=== PATIENT | male | born 1945 | race Caucasian/White ===

== ENCOUNTER 2022-01-30 01:00 | Day surgery (SDC) | payer MEDICARE, OTHER, SELFPAY ==
[2022-01-19 14:00] VITALS: BMI 27.9
[2022-01-30 09:06] VITALS: BP 128/87; PULSE 59; RESP 18; TEMP 36.3; O2SAT 100; BMI 25.7
--- NOTE | 2022-01-30 09:22 | P.HP_ITS ---
History of Present Illness History of Present Illness Consent: Risks, benefits, and alternatives have been discussed and questions answered. Patient agrees to proceed with procedure. Chief complaint: neoplasm screening Narrative: Dimitri Howe is a 76 year old male Presents for screening colonoscopy. Patient reports his current weight appetite and bowel movements are normal. Patient denies abdominal pain. He has had no bleeding. Family history is non contributory. Patient's last exam 10 years ago was unremarkable. Review of Systems Review of Systems: Review of systems noncontributory. [facility] Family History Family History (Updated 04/05/18 @ 15:40 by DOCTOR UNKNOWN) Father Diabetes mellitus Carcinoma of colon Family history of congestive heart failure Social History Social History Smoking status: Never smoker Second hand tobacco smoke exposure: No Alcohol intake: current Drinks per week: 4 Substance use type: does not use Living arrangements: with family Spiritual care concerns: No Meds Home Medications and Allergies Home Medications Medication Instructions Recorded Confirmed Type ascorbic acid (vitamin C) 500 mg 500 mg PO DAILY 03/21/19 01/30/22 History tablet (Vitamin C With Kendal Hips) finasteride 5 mg tablet 5 mg PO DAILY 03/21/19 01/30/22 History fish oil-dha-epa 1,200 mg-144 1 cap PO DAILY 03/21/19 01/30/22 History mg-216 mg capsule rjnutyaf-xep-wghiw acid 300 1 tablet PO DAILY 03/21/19 01/30/22 History mcg-lycopene 600 mcg-lutein 300 mcg tablet (Centrum Silver Men) sildenafil 100 mg tablet 100 mg PO DAILY PRN Erectile 03/21/19 01/30/22 History Dysfunction Allergies Allergy/AdvReac Type Severity Reaction Status Date / Time Contrast Media Allergy Unknown PREMEDS Uncoded 01/30/22 09:14 BEFORE CONTRAST TESTS D/T LOBSTER ALLERGY Lobster Allergy Unknown UNKNOWN Uncoded 01/30/22 09:14 Vital Signs Vital Signs - 24 hr 01/30/22 09:06 Temperature 97.3 F L Pulse Rate 59 L Respiratory Rate 18 Blood Pressure 128/87 Pulse Oximetry 100 Oxygen Delivery Room Air Exam Narrative: Physical exam reveals patient be alert. Vital signs stable. HEENT exam is unremarkable. Patient is anicteric. Lungs are clear to auscultation and percussion. Heart is without murmur or extra sounds. Abdomen bowel sounds present soft nontender with no organomegaly. Digital external rectal exam is normal. Assessment and Plan Assessment and plan (1) Encounter for screening colonoscopy: Code(s): Z12.11 - Encounter for screening for malignant neoplasm of colon Status: Acute Assessment and Plan: Patient presents today for screening colonoscopy. Appears to be at average risk for colon polyps.
[2022-01-30] MEDS: LACTATED RINGERS 1,000 ML 150 ML IV CONT (09:26)
--- NOTE | 2022-01-30 10:15 | P.PNAN_ITS ---
Anes - Initial Pre Proc Eval Procedure: Operation Date: 01/30/22 10:30 Proposed Procedures p Screening Colonoscopy - Reno Langston MD Date/Time: 01/30/22 10:15 Surgeon: Reno Langston MD Pre Op Diagnosis: neoplasm screening Patient Data Age: 76 Gender: M Height: 1.85 m Weight: 88.4 kg Last Vital Signs Temp 97.3 F L 01/30/22 09:06 Pulse 59 L 01/30/22 09:06 Resp 18 01/30/22 09:06 BP 128/87 01/30/22 09:06 Pulse Ox 100 01/30/22 09:06 O2 Del Method Room Air 01/30/22 09:06 Allergies Allergy/AdvReac Type Severity Reaction Status Date / Time Contrast Media Allergy Unknown PREMEDS Uncoded 01/30/22 09:14 BEFORE CONTRAST TESTS D/T LOBSTER ALLERGY Lobster Allergy Unknown UNKNOWN Uncoded 01/30/22 09:14 Home Medications Medication Instructions Recorded Confirmed Type ascorbic acid (vitamin C) 500 mg 500 mg PO DAILY 03/21/19 01/30/22 History tablet (Vitamin C With Kendal Hips) finasteride 5 mg tablet 5 mg PO DAILY 03/21/19 01/30/22 History fish oil-dha-epa 1,200 mg-144 1 cap PO DAILY 03/21/19 01/30/22 History mg-216 mg capsule xtudqnig-bdb-czndr acid 300 1 tablet PO DAILY 03/21/19 01/30/22 History mcg-lycopene 600 mcg-lutein 300 mcg tablet (Centrum Silver Men) sildenafil 100 mg tablet 100 mg PO DAILY PRN Erectile 03/21/19 01/30/22 History Dysfunction Patient hx anesthesia problems: none Family hx anesthesia problems: none Results Review: All pre-operative results and documents have been reviewed as part of the pre- operative evaluation. [facility] Family History Family History (Updated 04/05/18 @ 15:40 by DOCTOR UNKNOWN) Father Diabetes mellitus Carcinoma of colon Family history of congestive heart failure Social History Social History Smoking status: Never smoker Second hand tobacco smoke exposure: No Alcohol intake: current Drinks per week: 4 Substance use type: does not use Living arrangements: with family Spiritual care concerns: No Anes - Eval Final PreProcedure Day of Procedure 01/30/22 10:15 Results Review: All pre-operative results and documents have been reviewed as part of the pre- operative evaluation. Informed Consent: The patient's anesthetic plan and its attendant risks and benefits were discussed with the patient/family/POA. Questions were solicited and answers provided to the satisfaction of the patient/family/POA.
[2022-01-30 10:42] VITALS: BP 112/64; PULSE 74; RESP 18; O2SAT 98
[2022-01-30 10:52] VITALS: BP 110/67; PULSE 63; RESP 18; O2SAT 100
[2022-01-30 10:58] VITALS: BP 130/73; PULSE 57; RESP 18; O2SAT 100
== END 2022-01-30 11:19 | disposition home or self-care (01) ==
PROVIDERS: PCP Family Medicine Sports Medicine; Visit Provider Internal Medicine Gastroenterology
PROC: 0DJD8ZZ Inspection of Lower Intestinal Tract, Via Natural or Artificial Opening Endoscopic (ICD-10-PCS; CPT 45378; principal; 2022-01-30 10:30)
DX: Z12.11 Encounter for screening for malignant neoplasm of colon (principal); K64.8 Other hemorrhoids
CPT/HCPCS: G0121; J2704; J7120

== ENCOUNTER 2023-06-09 08:25 | Outpatient (CLI) | payer MEDICARE, OTHER, SELFPAY ==
--- NOTE | ~2023-06-09 | CT_ITS ---
EXAMINATION: CT abdomen pelvis wo/w con DATE: 06/09/2023 09:40 INDICATION: Malignant neoplasm of the bladder wall TECHNIQUE: Computed tomography (CT) of the abdomen and pelvis was performed without and with 130 cc O mnipaque 350 intravenous contrast. The dose-length product was 1466.15 mGy-cm. Automated exposure con trol and iterative reconstruction technique were employed. COMPARISON: CT dated 01/17/2016 FINDINGS: There are calcified granulomas of the lungs and spleen. Heart size normal. No significant p leural or pericardial effusion. No ureteral stones. No hydronephrosis. Fatty infiltration of the liver. The pancreas, adrenal glands and right kidney are unremarkable. Ther e is a 1 cm left renal cyst. Ureters are normal in course and caliber. Bladder wall is mildly thicken ed diffusely. There is focal nodular thickening of the inferior margin of the bladder. Nonobstructive bowel pattern. There is atherosclerosis of the aorta without aneurysm. No lymphadenopathy. No eviden ce for hernia. Gallbladder is present. Moderate lumbar spondylosis. IMPRESSION: 1. Diffuse mild bladder wall thickening with nodular thickening of the bladder base which may corresp ond to area of known malignancy. Clinically correlate. Reviewed, dictated and finalized at location A. IMPRESSION: 1. Diffuse mild bladder wall thickening with nodular thickening of the bladder base which may correspond to area of known malignancy. Clinically correlate.
[2023-06-09 09:08] LABS: Basophils Percent Auto 0.2 % (0.2-1.2); Hematocrit 47.1 % (42.0-52.0); Hemoglobin 15.7 g/dL (14.0-18.0); Immature Granulocyte Absolute 0.03 K/mm3 (0.00-0.031); Immature Granulocyte Percent A 0.5 % (0-0.5); Lymphocytes Absolute Auto 0.44 K/mm3 (0.9-3.2); Mean Corpuscular HGB Conc 33.3 g/dl (32-36); Mean Corpuscular Hemoglobin 31.1 pg (26-34); Mean Corpuscular Volume 93.3 fl (80-100); Mean Platelet Volume 10.2 fl (7.4-10.4); Monocytes Absolute Auto 0.1 K/mm3 (0.1-0.6); Monocytes Percent Auto 1.1 % (2.6-8.5); Neutrophils Absolute Auto 5.8 K/mm3 (1.3-6.7); Neutrophils Percent Auto 91.2 % (45.5-73.1); Platelet Count Result 265 k/mm3 (150-375); Red Blood Count 5.05 M/mm3 (4.6-6.20); Red Cell Distribution Width 13.2 % (11.5-14.5); White Blood Count 6.3 K/mm3 (4.5-10.0)
[2023-06-09 09:21] LABS: Anion Gap 6 mmol/L (8-16); Blood Urea Nitrogen 16 mg/dL (9-20); Calcium 9.1 mg/dL (8.4-10.2); Carbon Dioxide 28 mmol/L (22-30); Chloride 104 mmol/L (98-107); Estimated Glomerular Filt Rate > 60; Glucose 148 mg/dL (65-110); Partial Thromboplastin Time 31.1 Seconds (22.3-36.8); Potassium 4.5 mmol/L (3.4-5.0); Prothrombin Time 13.3 Seconds (11.1-14.7); Sodium 138 mmol/L (137-145)
[2023-06-09 09:22] LABS: Estimated Glomerular Filt Rate > 60
== END 2023-06-09 08:26 | disposition home or self-care (01) ==
PROVIDERS: PCP Family Medicine Sports Medicine; Visit Provider Urology
DX: C67.9 Malignant neoplasm of bladder, unspecified (principal)
CPT/HCPCS: 36415; 74178; 80048; 85025; 85610; 85730; Q9967

== ENCOUNTER 2023-06-12 01:53 | Day surgery (SDC) | payer MEDICARE, OTHER, SELFPAY ==
--- NOTE | 2023-06-08 09:31 | PC.NURSE ---
Report to the Outpatient Waiting Room, entrance under the green pavilion located off [facility], at time _0730 on date __06/12/23 . Planned Procedure Time: _929 . Time changes happen often and if your time is changed the preop area will call you the afternoon before. - You and your visitor will be asked to self-screen and do not enter if you have any COVID symptoms. - A mask is optional within the hospital at this time. Patients may have clear liquids (water, carbonated beverages, clear teas, apple juice) until 3 hours prior to surgery( 6:30 AM) with a maximum of 20 ounces. - No food from midnight until time of surgery - Infants may have breast milk until 4 hours before surgery, formula 6 hours prior to surgery. - Children will be allowed to drink immediately following surgery. If applicable, please bring a bottle or sippy cup to assist with drinking. Juice, water, soda, and popsicles are readily available. For infants on formula, please bring formula the day of surgery. Pacifiers are allowed. Take the following medications with a SIP of water the morning of surgery: NONE DO NOT STOP ANY OF YOUR OTHER PRESCRIPTION MEDICATIONS PRIOR TO SURGERY ?EXCEPT THE FOLLOWING Medications to discontinue per physician ALL VITAMINS AND SUPPLEMENTS 3 DAYS PRE OP.LAST DOSE 06/08/23 Please no make-up, nail italian, hairspray, perfume, deodorant, or body powder the day of surgery. No jewelry (including any body piercings) or valuables the day of surgery, leave them at home. Please take a shower or bath the night before, or the morning of, surgery with an antibacterial soap. Wear comfortable, loose fitting clothing. Children are encouraged to wear pajamas. - Jewelry must be removed prior to entering the operating room. Rings and piercings that are not removed may be cut off. - The hospital will not accept responsibility for valuables. - Please leave all valuables, including medications, at home the day of surgery. If you are going home after surgery, a licensed drop hammer pile driver operator must drive you home. - NO public transportation without another adult if you receive anesthesia. - We recommend that an adult stay with you for 24 hours following discharge. - We also recommend that you do not drive, make important decision, drink alcoholic beverages, or take any drugs that were not prescribed by your health care provider for at least 24 hours after your discharge time Follow any additional instructions given to you from your surgeon. If you or anyone in your household have experienced Covid symptoms in the past week, please notify your surgeon or the nurse liaison at the phone number below for possible testing. Telephone instructions given to __PATIENT and asked if any additional questions and then verbalized understanding. Patient advised to call surgeon office or pre surgery nurse liaison [phone] if any additional questions.
[2023-06-08 09:45] VITALS: BMI 27.0
[2023-06-12] VITALS (9 sets, daily range): BP systolic 136–185; BP diastolic 75–98; PULSE 46–74; RESP 10–20; TEMP 36.3; O2SAT 94–100; BMI 26.4
--- NOTE | ~2023-06-12 | XR_ITS ---
EXAMINATION: XR retrograde pyelogram LT DATE: 06/12/2023 11:57 INDICATION: Left retrograde pyelogram TECHNIQUE: 4 fluoroscopic images of the abdomen and pelvis were obtained during procedure performed zulma Howard. Radiologist was not present for the imaging or procedure. The amount of fluoroscopy t pablo used during this procedure was 0.3 minutes. COMPARISON: None. FINDINGS: Images demonstrate retrograde cannulation and contrast injection into the left ureter with contrast e xtending to the normal left renal collecting system. No urothelial irregularities or evident filling defects. IMPRESSION: 1. Normal left retrograde pyelogram. See procedure note for further detail. Reviewed, dictated and finalized at location A.
[2023-06-12] MEDS: LACTATED RINGERS 1,000 ML 30 ML IV CONT ×2 (08:25→11:58)
--- NOTE | 2023-06-12 09:20 | SUR.PREOP ---
0920- Notified patient and spouse procedure start time will be delayed. Patient and spouse verbalized understanding. Patient offered restroom and declined at this time. Patient denying any additional needs.
--- NOTE | 2023-06-12 10:01 | WPDHPUPDATE1 ---
History and Physical Update Update Date/Time: 06/12/23 10:01 History and Physical has been reviewed, including an updated exam of the patient. There are NO changes in the patient's condition. Risks, benefits, and alternatives have been discussed and questions answered. Patient agrees to proceed with procedure. Proceed with cysto, bladder biopsy, left retrograde pyelogram left ureteroscopy ,transurethral resection of bladder tumor
--- NOTE | 2023-06-12 11:09 | P.PNAN_ITS ---
Anes - Initial Pre Proc Eval Procedure: Operation Date: 06/12/23 09:30 Proposed Procedures p Cystoscopy Bladder Biopsy Left Retrograde Pyelogram, Left Ureteroscopy, - Rashard Howard MD s Possible Transurethral Resection Bladder Tumor - Rashard Howard MD Date/Time: 06/12/23 11:09 Surgeon: Rashard Howard MD Pre Op Diagnosis: bladder cancer Patient Data Age: 77 Gender: M Height: 1.85 m Weight: 91 kg Last Vital Signs Temp 36.3 C L 06/12/23 07:40 Pulse 60 06/12/23 07:40 Resp 14 06/12/23 07:40 BP 143/75 H 06/12/23 07:40 Pulse Ox 99 06/12/23 07:40 O2 Del Method Room Air 06/12/23 07:40 Allergies Allergy/AdvReac Type Severity Reaction Status Date / Time Contrast Media Allergy Unknown PREMEDS Uncoded 06/12/23 07:55 BEFORE CONTRAST TESTS D/T LOBSTER ALLERGY Lobster Allergy Unknown Vomiting Uncoded 06/12/23 07:55 Home Medications Medication Instructions Recorded Confirmed Type ascorbic acid (vitamin C) 500 mg 500 mg PO DAILY 03/21/19 06/12/23 History tablet (Vitamin C With Kendal Hips) finasteride 5 mg tablet 5 mg PO DAILY 03/21/19 06/08/23 History tjkffwqb-jk-xpiij 300 mcg-K 60 1 tablet PO DAILY 03/21/19 06/12/23 History mcg-lycop 600 mcg-lutein 300 mcg tablet (Centrum Silver Men) flaxseed oil (Linseed Oil) 10 ml miscellaneous DAILY 06/08/23 06/12/23 History Patient hx anesthesia problems: none Family hx anesthesia problems: none Results Review: All pre-operative results and documents have been reviewed as part of the pre- operative evaluation. [facility], [facility] Family History Family History Father Diabetes mellitus Carcinoma of colon Family history of congestive heart failure Social History Social History Smoking status: Never smoker Second hand tobacco smoke exposure: No Alcohol intake: current Drinks per week: 2 Substance use type: does not use Living arrangements: with family Spiritual care concerns: No Anes - Eval Final PreProcedure Day of Procedure 06/12/23 11:09 Patient weight: overweight Heart: regular rate and rhythm Lungs: clear to auscultation Airway: Mallampati scale class II Neurological: alert and oriented Last oral intake: >/= 8 hours ASA classification: III Emergent: no Anesthetic plan: proceed Anesthesia type and monitoring: general LMA and standard monitoring Results Review: All pre-operative results and documents have been reviewed as part of the pre- operative evaluation. Informed Consent: The patient's anesthetic plan and its attendant risks and benefits were discussed with the patient/family/POA. Questions were solicited and answers pr ovided to the satisfaction of the patient/family/POA.
[2023-06-12] MEDS: ceFAZolin 2 GM/D5W 50 ML 2 GM/50 ML BAG IVPB (11:15)
--- NOTE | 2023-06-12 11:54 | W.PM.PROC2 ---
Procedure Note - Detailed Date of Procedure 06/12/23 Pre-op Diagnosis bladder cancer Post-op Diagnosis Same Procedure Performed Cystoscopy, left retrograde pyelogram, left distal ureteroscopy, bladder biopsy with fulguration Surgeon Rashard Howard MD Anesthesia General Description of Procedure Patient is taken to the operative suite correctly identified. Once anesthesia was obtained was placed in dorsal lithotomy position and prepped and draped usual sterile fashion. Twenty-two Samoan scope was inserted in the bladder. He has some erythema along the left lateral wall and floor of the bladder. Using a cold cup biopsy I biopsied these areas and fulgurated the base. A left retrograde pyelogram was performed. There was no filling defects but it was somewhat dilated the distal ureter down to the intramural ureter. I placed a Sensor wire and a rigid ureteral scope in. There is no tumors noted. It did eventually drain the contrast. Bladder was drained. 2% viscous lidocaine was inserted into the urethra patient is taken recovery stable condition. He is to call for path results in 1 week. This completes dictation. Please send a copy of op note to my office. Estimated Blood Loss 0 Drains No Packing No Pathology Yes Complications No immediate complications Condition Stable Disposition PACU
[2023-06-12] MEDS: ACETAMINOPHEN 500 MG TABLET 1000 MG PO (13:20)
== END 2023-06-12 14:02 | disposition home or self-care (01) ==
PROVIDERS: PCP Family Medicine Sports Medicine; Visit Provider Urology
PROC: 0TBB8ZZ Excision of Bladder, Via Natural or Artificial Opening Endoscopic (ICD-10-PCS; CPT 52204; 2023-06-12 09:30)
DX: N30.20 Other chronic cystitis without hematuria (principal); N32.81 Overactive bladder; R35.1 Nocturia
CPT/HCPCS: 52204; 74420; 88305; A9270; J0690; J1100; J2250; J2405; J2704; J3010; J7120

== ENCOUNTER 2024-01-08 07:41 | Outpatient (CLI) | payer MEDICARE, OTHER, SELFPAY ==
--- NOTE | 2024-01-08 07:48 | ECG_ITS ---
Test Date: 2024-01-08 08:12:37 Measurements Intervals [place] Rate: 58 P: 46 AR: 193 QRS: 17 QRSD: 90 T: 38 QT: 382 QTc: 377 Interpretive Statements SINUS BRADYCARDIA POSSIBLE RIGHT VENTRICULAR CONDUCTION DELAY [RSR (QR) IN V1/V2] No previous ECG available for comparison Electronically Signed On 01-08-2024 09:43:27 CDT by Pritesh Angel M.D.
[2024-01-08 08:32] LABS: Basophils Percent Auto 0.5 % (0.2-1.2); Eosinophils Absolute Auto 0.2 K/mm3 (0-0.3); Eosinophils Percent Auto 4.1 % (0-4.4); Hematocrit 44.9 % (42.0-52.0); Hemoglobin 15.1 g/dL (14.0-18.0); Immature Granulocyte Absolute 0.03 K/mm3 (0.00-0.031); Immature Granulocyte Percent A 0.5 % (0-0.5); Lymphocytes Absolute Auto 1.08 K/mm3 (0.9-3.2); Lymphocytes Percent Auto 19.3 % (18.3-44.2); Mean Corpuscular HGB Conc 33.6 g/dl (32-36); Mean Corpuscular Hemoglobin 31.7 pg (26-34); Mean Corpuscular Volume 94.1 fl (80-100); Mean Platelet Volume 9.7 fl (7.4-10.4); Monocytes Absolute Auto 0.6 K/mm3 (0.1-0.6); Monocytes Percent Auto 11.4 % (2.6-8.5); Neutrophils Absolute Auto 3.6 K/mm3 (1.3-6.7); Neutrophils Percent Auto 64.2 % (45.5-73.1); Platelet Count Result 245 k/mm3 (150-375); Red Blood Count 4.77 M/mm3 (4.6-6.20); Red Cell Distribution Width 13.2 % (11.5-14.5); White Blood Count 5.6 K/mm3 (4.5-10.0)
[2024-01-08 08:41] LABS: Prothrombin Time 13.6 Seconds (11.1-14.7)
[2024-01-08 08:42] LABS: Partial Thromboplastin Time 29.3 Seconds (22.3-36.8)
[2024-01-08 08:44] LABS: Anion Gap 3 mmol/L (4-12); Blood Urea Nitrogen 16 mg/dL (9-20); Calcium 9.2 mg/dL (8.4-10.2); Carbon Dioxide 34 mmol/L (22-30); Chloride 101 mmol/L (98-107); Estimated Glomerular Filt Rate > 60; Glucose 96 mg/dL (65-110); Potassium 4.4 mmol/L (3.4-5.0); Sodium 138 mmol/L (137-145)
== END 2024-01-08 07:42 | disposition home or self-care (01) ==
LOC: ANHSURGERY 07:48
PROVIDERS: PCP Family Medicine Sports Medicine; Visit Provider Urology
DX: Z01.818 Encounter for other preprocedural examination (principal); N32.9 Bladder disorder, unspecified; I10 Essential (primary) hypertension; R00.1 Bradycardia, unspecified
CPT/HCPCS: 36415; 80048; 85025; 85610; 85730; 87086; 93005

== ENCOUNTER 2024-01-15 02:29 | Day surgery (SDC) | payer MEDICARE, OTHER, SELFPAY ==
[2024-01-04 13:22] VITALS: BMI 26.2
--- NOTE | 2024-01-04 13:32 | PC.NURSE ---
Report to the Outpatient Waiting Room, entrance under the green pavilion located off [facility], at time _0715am _ on date 01/15/24 . Planned Procedure Time: __0915 am .? Time changes happen often and if your time is changed the preop area will call you the afternoon before. - You and your visitor will be asked to self-screen and do not enter if you have any COVID symptoms. Please call surgeon if you need to reschedule. - A mask is optional within the hospital at this time. Patients may have clear liquids (water, carbonated beverages, clear teas, apple juice) until 3 hours prior to surgery with a maximum of 20 ounces. - No food from midnight until time of surgery and no smoking (0615) Take only the following medications with a SIP of water on the morning of surgery: None DO NOT STOP ANY OF YOUR OTHER PRESCRIPTION MEDICATIONS PRIOR TO SURGERY EXCEPT THE FOLLOWING Medications to discontinue per physician Vitamins and supplements hold for 3 days per Anesthesia Date to take last dose___01/11/24 Please no make-up, nail sami, hairspray, perfume, deodorant, or body powder the day of surgery.? No jewelry (including any body piercings) or valuables the day of surgery, leave them at home.? Please take a shower or bath the night before, or the morning of, surgery with an antibacterial soap.? Wear comfortable, loose fitting clothing.? - Jewelry must be removed prior to entering the operating room.? Rings and piercings that are not removed may be cut off. - The hospital will not accept responsibility for valuables.? - Please leave all valuables, including medications, at home the day of surgery. If you are going home after surgery, a licensed show horse driver must drive you home.? - NO public transportation without another adult if you receive anesthesia. - We recommend that an adult stay with you for 24 hours following discharge. - We also recommend that you do not drive, make important decision, drink alcoholic beverages, or take any drugs that were not prescribed by your health care provider for at least 24 hours after your discharge time. Follow any additional instructions given to you from your surgeon. Telephone instructions given to __patient and asked if any additional questions and then verbalized understanding. Patient advised to call surgeon office or pre surgery nurse liaison [phone] if any additional questions.
[2024-01-15] VITALS (9 sets, daily range): BP systolic 111–181; BP diastolic 64–101; PULSE 55–68; RESP 10–20; TEMP 35.9–36.4; O2SAT 99–100
[2024-01-15] MEDS: LACTATED RINGERS 1,000 ML 30 ML IV CONT (09:00)
--- NOTE | 2024-01-15 10:35 | WPDHPUPDATE1 ---
History and Physical Update Update Date/Time: 01/15/24 10:35 History and Physical has been reviewed, including an updated exam of the patient. There are NO changes in the patient's condition. Risks, benefits, and alternatives have been discussed and questions answered. Patient agrees to proceed with procedure. Proceed with cysto, bladder biopsy with fulguration possible TURBT
--- NOTE | 2024-01-15 10:51 | P.PNAN_ITS ---
Anes - Initial Pre Proc Eval Procedure: Operation Date: 01/15/24 10:15 Proposed Procedures p Trans Urethral Resection Bladder Tumor - Rashard Howard MD s Cystoscopy with Bladder Biopsy - Rashard Howard MD Date/Time: 01/15/24 10:51 Surgeon: Rashard Howard MD Pre Op Diagnosis: Ca Situ Bladder, Overactive Bladder, Chr Cystitis Patient Data Age: 78 Gender: M Height: 1.85 m Weight: 89.2 kg Last Vital Signs Temp 35.9 C L 01/15/24 09:00 Pulse 59 L 01/15/24 09:00 Resp 14 01/15/24 09:00 BP 141/81 H 01/15/24 09:00 Pulse Ox 99 01/15/24 09:00 O2 Del Method Room Air 01/15/24 09:00 Allergies Allergy/AdvReac Type Severity Reaction Status Date / Time Contrast Media Allergy Unknown PREMEDS Uncoded 01/15/24 09:27 BEFORE CONTRAST TESTS D/T LOBSTER ALLERGY Lobster Allergy Unknown Vomiting Uncoded 01/15/24 09:27 Home Medications Medication Instructions Recorded Confirmed Type ascorbic acid (vitamin C) 500 mg 500 mg PO DAILY 03/21/19 01/15/24 History tablet (Vitamin C With Kendal Hips) finasteride 5 mg tablet 5 mg PO DAILY 03/21/19 01/15/24 History uaripfub-ap-byqaj 300 mcg-K 60 1 tablet PO DAILY 03/21/19 01/15/24 History mcg-lycop 600 mcg-lutein 300 mcg tablet (Centrum Silver Men) flaxseed oil (Linseed Oil) 10 ml miscellaneous DAILY 06/08/23 01/04/24 History vibegron 75 mg tablet (Gemtesa) 75 mg PO DAILY 01/04/24 01/04/24 History Patient hx anesthesia problems: none Family hx anesthesia problems: none Results Review: All pre-operative results and documents have been reviewed as part of the pre- operative evaluation. [facility] Past Medical History Medical History (Updated 01/15/24 @ 10:52 by Memo Nicole MD) Bladder cancer HTN (hypertension) Family History Family History Father Diabetes mellitus Carcinoma of colon Family history of congestive heart failure Social History Social History Smoking status: Never smoker Second hand tobacco smoke exposure: No Alcohol intake: current Drinks per week: 1 Substance use: never Substance use type: does not use Living arrangements: with family Additional living arrangements comments: Spiritual care concerns: No Anes - Eval Final PreProcedure Day of Procedure 01/15/24 10:51 Patient weight: overweight Heart: regular rate and rhythm Lungs: clear to auscultation Airway: Mallampati scale class II Neurological: alert and oriented Last oral intake: >/= 8 hours ASA classification: III Emergent: no Anesthetic plan: proceed Anesthesia type and monitoring: general LMA and standard monitoring Results Review: All pre-operative results and documents have been reviewed as part of the pre- operative evaluation. Informed Consent: The patient's anesthetic plan and its attendant risks and benefits were discussed with the patient/family/POA. Questions were solicited and answers provided to the satisfaction of the patient/family/POA.
[2024-01-15] MEDS: ceFAZolin 2 GM/D5W 50 ML 2 GM/50 ML BAG IVPB (11:18)
[2024-01-15] MEDS: LIDOCAINE HCL 2% GEL UROJET 10 ML PKG MUCOUS MEM (11:34)
--- NOTE | 2024-01-15 11:52 | W.PM.PROC2 ---
Procedure Note - Detailed Date of Procedure 01/15/24 Pre-op Diagnosis Ca Situ Bladder, Overactive Bladder, Chr Cystitis Post-op Diagnosis Same Procedure Performed Cystoscopy with bladder biopsy and fulguration Surgeon Rashard Howard MD Anesthesia General Description of Procedure Patient was taken the operative suite correctly identified. Once anesthesia was obtained was placed in dorsal lithotomy position and prepped and draped usual sterile fashion. Twenty-two New Zealander scope inserted the bladder. There was no discrete papillary tumors. He does have quite a bit of diffuse erythema along the posterior wall and floor the bladder. Using cold cup biopsy and took several pieces. These were then fulgurated using a rollerball. I did not see any significant abnormality at the bladder neck on today's exam. 2% viscous lidocaine was inserted into the urethra and he is taken recovery stable condition. He will call for results in a week. Please send a copy of this op note to my office. Estimated Blood Loss 0 Drains No Packing No Pathology Yes Complications No immediate complications Condition Stable Disposition PACU
[2024-01-15] MEDS: ACETAMINOPHEN 500 MG TABLET 1000 MG PO (13:19)
== END 2024-01-15 14:00 | disposition home or self-care (01) ==
PROVIDERS: PCP Family Medicine Sports Medicine; Visit Provider Urology
PROC: 0TBB8ZZ Excision of Bladder, Via Natural or Artificial Opening Endoscopic (ICD-10-PCS; CPT 52204; principal; 2024-01-15 10:15)
PROC: 0TBB8ZX Excision of Bladder, Via Natural or Artificial Opening Endoscopic, Diagnostic (ICD-10-PCS; CPT 52204; 2024-01-15 10:15)
DX: Z08 Encounter for follow-up examination after completed treatment for malignant neoplasm (principal); D09.0 Carcinoma in situ of bladder; N30.20 Other chronic cystitis without hematuria; N32.89 Other specified disorders of bladder; I10 Essential (primary) hypertension; N40.1 Benign prostatic hyperplasia with lower urinary tract symptoms; N32.81 Overactive bladder; R35.0 Frequency of micturition; N52.9 Male erectile dysfunction, unspecified; Z85.51 Personal history of malignant neoplasm of bladder; Z80.0 Family history of malignant neoplasm of digestive organs; Z82.49 Family history of ischemic heart disease and other diseases of the circulatory system
CPT/HCPCS: 52204; 88305; 88342; A9270; J0690; J1100; J1596; J2003; J2405; J2704; J3010; J7120

== ENCOUNTER 2024-05-30 07:22 | Outpatient (CLI) | payer MEDICARE, OTHER, SELFPAY ==
--- NOTE | ~2024-05-30 | CT_ITS ---
EXAMINATION: CT abdomen pelvis wo/w con DATE: 05/30/2024 08:07 INDICATION: Carcinoma in situ of bladder. TECHNIQUE: Computed tomography (CT) of the abdomen and pelvis was performed without and with intraven ous contrast using a total of 130 mL Omnipaque-350 intravenous contrast with a double-bolus technique for simultaneous opacification of the renal parenchyma and renal collecting system. Automated exposu re control and iterative reconstruction technique were employed. The dose-length product was 1501.62 mGy-cm. COMPARISON: CT abdomen and pelvis 06/09/2023 FINDINGS: The visualized portions of the lung bases demonstrate mild atelectasis. Calcified pulmonary nodules a nd calcified hilar and mediastinal lymph nodes are consistent with old granulomatous disease. No pleu ral effusion. Calcifications in the liver and spleen are consistent with old granulomatous disease. T he liver, pancreas, adrenal glands, and right kidney are normal. There are cysts in left kidney measu ring up to 10 mm. There is no urolithiasis. The ureters are well opacified and are normal. There is d iffuse bladder wall thickening. The prostate is mildly enlarged. There are no dilated loops of bowel. The appendix is normal. There are no pathologically enlarged lymph nodes. There is no free intraperi toneal fluid. There are bilateral inguinal hernias containing fat. There is mild thoracic and lumbar spondylosis. There is mild chronic height loss of multiple thoracic vertebral bodies. IMPRESSION: 1. Chronic diffuse bladder wall thickening, likely secondary to chronic outlet obstruction from the m ildly enlarged prostate. Malignancy is not excluded. Reviewed, dictated and finalized at location L. IMPRESSION: 1. Chronic diffuse bladder wall thickening, likely secondary to chronic outlet obstruction from the mildly enlarged prostate. Malignancy is not excluded.
--- OUTSIDE RECORDS SUMMARY | 2024-05-30 07:36 | XMS_ITS | Encounter Summary ---
Author Organization [facility] Address [facility] [place] [address] Care Team Providers Care Test Preparer Name Role Phone Shahid Alanis MD Primary Care Provider [phone]- [phone] Encounter Details Date Type Department Care Team (Late st Contact Info) Description 11/18/2021 Software 2000t Message Enc [facility] Medical Group Family & Internal Medicine [address] [address] Shahid Alanis MD [address] [place] [address] 10 year colonoscopy Social History Tobacco Use Types Packs/Day Years Used Date Smoking Tobacco: Former Cigarettes 0.3 0.3 Smokeless Tobacco: Never Comments:former smoker, kana h or 2 in college. Alcohol Use Standard Drinks/Week Comments Yes 5 (1 standard drink = 0.6 oz pur e alcohol) 2-6 beers/week PHQ-2 Answer Date Recorded PHQ-2 Score - If the patient scores above 3, please move on to questions 3-9 0 11/16/2021 Sex and Gender Information Value Date Recorded Sex Assigned at Not on file Legal Sex Male 7:52 PM CDT Gender Identity Male 06/29/2021 10:01 AM CDT Sexual Orientation Straight 06/29/2021 10 :01 AM CDT COVID-19 Exposure Response Date Recorded In the last 10 days, have yo u been in contact with someone who was confirmed or suspected to have Coronavirus/COVID-19? No / Unsure 11/17/2021 3:42 PM CDT documented as of this encounter Plan of Treatment Upcoming Encounters Date Type Department Care Team (Late st Contact Info) Description 11/27/2024 3:40 PM CDT Office Visit [facility] Medical Group Family & Internal Medicine [facility] [address] [place] [phone] Shahid Alanis MD [address] [facility] [address] [place] [address] documented as of this encounter Visit Diagnoses Not on filedocumented in this encounter Additional Health Concerns Infection Onset Date Last Indicated Resolved Time COVID-19 Rule Out 01/10/2023 01/10/2023 01/10/2023 9:50 AM CDT COVID-19 Rule Out 03/30/2023 03/30/2023 03/30/2023 8:46 AM VICE PRESIDENT OF ENGINEERING COVID-19 Rule Out 03/30/2023 03/30/2023 03/30/2023 11:24 AM VICE PRESIDENT OF ENGINEERING Assessment Noted Time PHQ-9 Depression Total Score: 0 11/17/19 21 4:14 PM CDT documented as of this encounter Care Teams Test Preparer Relationship Specialty [place] [address] [place] [address] PCP - General FAMILY PRACTICE 11/13/19 documented as of this encounter
--- OUTSIDE RECORDS SUMMARY | 2024-05-30 07:36 | XMS_ITS | Clinical Summary ---
Author Organization [facility] Address [address] [place] [address] Phone Care Team Providers Care Hat Block Maker Name Role Phone Shahid Alanis MD Primary Care Provider Allergies Active Allergy Reactions Criticality Noted Date Comments Shellfish Containing Products Unknown 2021 Medications finasteride (PROSCAR) 5 mg tablet Take 5 mg by mouth daily at bedtime. 08/24/2019 Active therapeutic multivitamin (THERA TAB) Tablet Take 1 Tablet by mouth daily. Active calcium as carbonate (TUMS) 500 mg (200 mg elemental) Tablet, Chewable Take by mouth. Active flaxseed Oil 1,000 mg Capsule Take 1,000 mg by mouth daily. Active turmeric 400 mg Capsule Take 400 mg by mouth daily. Active ascorbic acid, vitamin C, (VITAMIN C) 500 mg tablet Take 500 mg by mouth daily. Active Social History Tobacco Use Types Packs/Day Years Used Date Smoking Tobacco: Never Assessed Sex and Gender Information Value Date Recorded Sex Assigned at Not on file Legal Sex Male 10:50 AM CDT Gender Identity Not on file Sexual Orientation Not on file Last Filed Vital Signs Vital Sign Reading Time Taken Comments Blood Pressure 158/75 11/10/2021 1:20 PM EDT Pulse 55 11/10/2021 1:20 PM EDT Temperature - - Respiratory Rate 20 11/10/2021 11:55 AM EDT Oxygen Saturation 100% 11/10/2021 1:20 PM EDT Inhaled Oxygen Concentration - - Weight 95.3 kg (210 lb) 11/10/2021 11:55 AM EDT Height 180.3 cm (5' 11 ) 11/10/2021 11:55 AM EDT Body Mass Index 29.29 11/10/2021 11:55 AM EDT Plan of Treatment Health Maintenance Due Date Last Done Comments PNEUMOCOCCAL VACCINE 50+ YEA RS (2 of 2 - PCV) 12/17/2017 12/17/2016, 12/30/2013 RSV VACCINE (60+ or ) (1 - 1-dose 75+ series) 2021 INFLUENZA VACCINE (#1) 2023 DTAP/TDAP/TD VACCINES (2 - T d or Tdap) 11/10/2026 11/10/2016, 03/22/2005, 05/28/1995 ZOSTER VACCINE Completed 10/02/2019, 04/20, 05/14/2014 Insurance MEDICARE [facility] [facility] Care Teams Hat Block Maker Relationship Specialty [place] [address] [address] [place] [address] PCP - General Family Practice 11/10/21
--- OUTSIDE RECORDS SUMMARY | 2024-05-30 07:36 | XMS_ITS | Clinical Summary ---
Author Organization [facility] Address [facility] [place] [address] Care Team Providers Care Practice Consultant Name Role Phone hSahid Alanis MD Primary Care Provider +1- [phone] Allergies Active Allergy Reactions Criticality Noted Date Comments Shellfish-Derived Products Nausea and Vo miting,Other (see comment) Medium 11/13/2019 Medications finasteride 5 MG tablet Take 1 tablet (5 mg total) by mouth daily. 08/24/2019 Active vitamin C (ASCORBIC ACID) 500 MG tablet Take 1 tablet (500 mg total) by mouth daily. Active multi vitamin/minerals tablet Take 1 tablet by mouth daily. Active Calcium Carbonate Antacid 1000 MG Chew Tab 03/19/1999 Active Flaxseed, Linseed, (FLAXSEED OIL) 1200 MG Cap 03/19/2015 Active vibegron (GEMTESA) 75 MG tablet 09/07/2023 Active Active Problems No known active problems Encounters Date Type Department Care Team Description 03/10/2024 11:52 AM TRAIN CALLER - 03/10/2024 11:59 PM TRAIN CALLER Hospital Encounter [facility] [address] [place] [address] Celeste Del Castillo, PA Discharge Disposition: Home or Self Care (Routine Discharge) 03/10/2024 10:40 AM TRAIN CALLER Office Visit [facility] Medical Group Family & Internal Medicine [facility] [address] [place] [address] Celeste Del Castillo, PA Urinary Problem (4 days ago started having urgency to urinate ) 03/10/2024 Travel 03/04/2024 Scan [facility] INFO SRVCS Scanned, Doc Med Group from Last 3 Months Immunizations Name Administration Dates Next Due Influenza (Generic) 12/27/2018 Influenza Adult (Generic) 12/30/2015 Pneumococcal (Pneumovax 23) 12/17/2016, 4 Shingrix 10/02/2019,05/14/2019 Td (Generic) 03/22/2005,05/28/1995 Td, Adsorbed, Preservative F ree, Adult Use, Lf Unspecified 03/22/2005,05/28/1995 Tdap (Generic) 11/10/2016 Zoster (Zostavax) 14262 Unt/0.65Ml 05/14/2014 Family History Medical History Relation Comments CHF Father Cancer Father colon Diabetes Father Heart Disease Father Arthritis Mother Relation Status Comments Father Mother Social History Tobacco Use Types Packs/Day Years Used Date Smoking Tobacco: Former Cigarettes 0.3 0.2 1 - 03/18/1966 Smokeless Tobacco: Never Tobacco Cessation:Counseling Given: No Comments:former smoker, month or 2 in college. Alcohol Use Standard Drinks/Week Comments Yes 5 (1 standard drink = 0.6 oz pur e alcohol) 2-6 beers/week PHQ-2 Answer Date Recorded Patient Health Questionnaire-2 Score 0 01/10/2023 Sex and Gender Information Value Date Recorded Sex Assigned at Not on file Legal Sex Male 7:52 PM CDT Gender Identity Male 06/29/2021 10:01 AM CDT Sexual Orientation Straight 06/29/2021 10 :01 AM CDT Last Filed Vital Signs Vital Sign Reading Time Taken Comments Blood Pressure 129/71 03/10/2024 9:02 AM TRAIN CALLER Pulse 60 03/10/2024 8:55 AM TRAIN CALLER Temperature 36.5 C (97.7 F) 03/10/2024 8:55 AM TRAIN CALLER Respiratory Rate 18 03/10/2024 8:55 AM TRAIN CALLER Oxygen Saturation 98% 03/10/2024 8:55 AM TRAIN CALLER Inhaled Oxygen Concentration - - Weight 94.7 kg (208 lb 12.8 oz) 03/10/2024 8:55 AM TRAIN CALLER Height 185.4 cm (6' 1 ) 03/10/2024 8:55 AM TRAIN CALLER Body Mass Index 27.55 03/10/2024 8:55 AM TRAIN CALLER Plan of Treatment Upcoming Encounters Date Type Department Care Team (Late st Contact Info) Description 11/27/2024 3:40 PM CDT Office Visit [facility] Medical Group Family & Internal Medicine [facility] [address] [place] [address] Shahid Alanis MD [address] [facility] [address] [place] [address] Health Maintenance Due Date Last Done Comments Hepatitis C 1963 Annual Medicare Wellness Visit 11/12/2011 Pneumococcal Vaccine: 65+ Years (2 of 2 - PCV) 12/17/2017 12/17/2016, 12/30/2013 RSV Immunization or 60+ Years (1 - 1-dose 75+ series) 2021 COVID-19 Vaccine ( season) 2023 01/08/2023, 12/11/2021, 10/04/2021, Additional history exists Influenza Adult (#1) 2023 12/27/2018, 12/30/19 16 PHQ-2 (Physician De Berry) 03/19/2024 01/10/2023 DTaP, Tdap and Td Vaccines (2 - Td or Tdap) 11/10/2026 11/10/2016, 03/22/2005, 03/22/2005, Additional history exists Zoster Vaccines Completed 10/02/2019, 04/20, 05/14/2014 Meningococcal B Vaccine Aged Out No l onger eligible based on patient's age to complete this topic Meningococcal Vaccine Aged Out No jeremias gopal eligible based on patient's age to complete this topic RSV Immunizations Under 20 Months Aged Out No longer eligible based on patient's age to complete this topic Procedures Procedure Name Priority Date/Time Associated Diagnosis Comments URINE BACTERIA CULTURE Routine 03/10/2024 9:24 AM TRAIN CALLER Symptoms involving urinary system Acute cystitis with hematuria URINALYSIS AUTO DIP Routine 03/10/2024 Symptoms involving urinary system from Last 3 Months Results * URINE BACTERIA CULTURE (03/10/2024 9:24 AM TRAIN CALLER) SPEC DESCRIPTION URINE CLEAN CATCH 03/10/2024 11:53 AM TRAIN CALLER [facility] SPECIAL REQUESTS NO SPECIAL REQUEST 03/10/2024 11:53 AM TRAIN CALLER [facility] CULTURE RESULT NO GROWTH 2 DAYS 03/12/2024 8:01 AM TRAIN CALLER [facility] URINE SPECIMEN OBTAINED BY CLEAN CATCH PROCEDURE / Unknown 03/10/2024 9:24 AM TRAIN CALLER 03/10/2024 11:57 AM TRAIN CALLER Celeste DOBBINS MICROBIOLOGY - GENERAL ORDER ZOILA Final Result [facility] [address] [place] [address], [place] [phone] [facility] [address] [place] [address], [place] [phone] * (ABNORMAL) URINALYSIS AUTO DIP (03/10/2024) COLOR (U) YELLOW YELLOW [id number] CLEAR CLEAR MG-[address], [place] GLUCOSE (U) NEGATIVE NEGATIVE MG/DL [id number] [address], [place] BILIRUBIN (U) NEGATIVE NEGATIVE MG-[address], [place] KETONES MG/DL (U) NEGATIVE NEGATIVE MG/DL [id number], [place] SPECIFIC GRAVITY (U) 1.020 1.001 - 1.035 [id number] BLOOD (U) NEGATIVE NEGATIVE MG-[address] U PH 6.5 5.0 - 9.0 MG-[address], [place] PROTEIN (U) TRACE(A) NEGATIVE mg/dL [id number] [address], [place] UROBILINOGEN 0.2 0.2 - 1.0 EU/dL = mg/dL [id number] [address], [place] NITRITES NEGATIVE NEGATIVE MG/DL MG-[id number] [address], [place] LEUKOCYTES (U) TRACE(A) NEGATIVE MG-[address] [place] URINE SPECIMEN OBTAINED BY CLEAN CATCH PROCEDURE / Unknown 03/10/2024 us Celeste DOBBINS URINE ORDERABLES Final Resul t [id number] [address] [place] [address] [place] [address], [place] [phone] from Last 3 Months Insurance MEDICARE [facility] Care Teams Practice Consultant Relationship Specialty [place] [address] [place] [address] PCP - General FAMILY PRACTICE 11/13/19
[2024-05-30 07:47] LABS: Estimated Glomerular Filt Rate > 60
== END 2024-05-30 07:23 | disposition home or self-care (01) ==
PROVIDERS: PCP Family Medicine Sports Medicine; Visit Provider Urology
DX: D09.0 Carcinoma in situ of bladder (principal)
CPT/HCPCS: 74178; Q9967

== ENCOUNTER 2024-05-30 08:31 | Outpatient (CLI) | payer MEDICARE, OTHER, SELFPAY ==
--- OUTSIDE RECORDS SUMMARY | 2024-05-30 08:51 | XMS_ITS | Encounter Summary ---
Author Organization [facility] Address [facility] [place] [address] Care Team Providers Care Lead Programmer Name Role Phone Shahid Alnais MD Primary Care Provider +1- [phone] Encounter Details Date Type Department Care Team (Late st Contact Info) Description 11/18/2021 TransLatticet Message Enc [facility] Medical Group Family & Internal Medicine [address] [address] Shahid Alanis MD [address] [place] [address] 10 year colonoscopy Social History Tobacco Use [...] Description 11/27/2024 3:40 PM CDT Office Visit [facility] Medical Group Family & Internal Medicine [facility] [address] [place] [phone] Shahid Alanis MD [address] [facility] [address] [place] [address] documented as of this encounter Visit Diagnoses Not on filedocumented in this encounter Additional Health Concerns Infection Onset Date Last Indicated Resolved Time COVID-19 Rule Out 01/10/2023 01/10/2023 01/10/2023 9:50 AM CDT COVID-19 Rule Out 03/30/2023 03/30/2023 03/30/2023 8:46 AM RESEARCH ANALYST COVID-19 Rule Out 03/30/2023 03/30/2023 03/30/2023 11:24 AM RESEARCH ANALYST Assessment Noted Time PHQ-9 Depression Total Score: 0 11/17/19 21 4:14 PM CDT documented as of this encounter Care Teams Lead Programmer Relationship Specialty [place] [address] [place] [address] PCP - General FAMILY PRACTICE 11/13/19 documented as of this encounter
--- OUTSIDE RECORDS SUMMARY | 2024-05-30 08:51 | XMS_ITS | Clinical Summary ---
Author Organization [facility] Address [facility] access hospital[address] [place] [address] Care Team Providers Care Sec Reporting Consultant Name Role Phone Shahid Alanis MD Primary Care Provider +1- [phone] Allergies Active Allergy Reactions Criticality Noted Date [...] Department Care Team Description 03/10/2024 11:52 AM DOG WARDEN - 03/10/2024 11:59 PM DOG WARDEN Hospital Encounter [facility] [address] [place] [address] Celeste Del Castillo, PA Discharge Disposition: Home or Self Care (Routine Discharge) 03/10/2024 10:40 AM DOG WARDEN Office Visit [facility] Medical Group Family & Internal Medicine [facility] [address] [place] [address] Celeste Del Castillo, PA Urinary [...] Unspecified 03/22/2005,05/28/1995 Tdap (Generic) 11/10/2016 Zoster (Zostavax) 42879 Unt/0.65Ml 05/14/2014 Family History Medical History Relation [...] Comments Blood Pressure 129/71 03/10/2024 9:02 AM DOG WARDEN Pulse 60 03/10/2024 8:55 AM DOG WARDEN Temperature 36.5 C (97.7 F) 03/10/2024 8:55 AM DOG WARDEN Respiratory Rate 18 03/10/2024 8:55 AM DOG WARDEN Oxygen Saturation 98% 03/10/2024 8:55 AM DOG WARDEN Inhaled Oxygen Concentration - - Weight 94.7 kg (208 lb 12.8 oz) 03/10/2024 8:55 AM DOG WARDEN Height 185.4 cm (6' 1 ) 03/10/2024 8:55 AM DOG WARDEN Body Mass Index 27.55 03/10/2024 8:55 AM DOG WARDEN Plan of Treatment Upcoming Encounters Date Type Department Care Team (Late st Contact Info) Description 11/27/2024 3:40 PM CDT Office Visit [facility] Medical Group Family & Internal Medicine [facility] [address] [place] [address] Shahid Alanis MD [address] [facility] [address] [place] [address] Health Maintenance Due Date Last Done Comments Hepatitis C 1963 Annual Medicare Wellness Visit 11/12/2011 Pneumococcal Vaccine: 65+ Years (2 of 2 - PCV) 12/17/2017 12/17/2016, 12/30/2013 RSV Immunization or 60+ Years (1 - 1-dose 75+ series) 2021 COVID-19 Vaccine ( season) 2023 01/08/2023, 12/11/2021, 10/04/2021, Additional history exists Influenza Adult (#1) 2023 12/27/2018, 12/30/19 16 PHQ-2 (Physician [place]) 03/19/2024 01/10/2023 DTaP, Tdap and Td Vaccines [...] URINE BACTERIA CULTURE Routine 03/10/2024 9:24 AM DOG WARDEN Symptoms involving urinary system Acute cystitis with hematuria URINALYSIS AUTO DIP Routine 03/10/2024 Symptoms involving urinary system from Last 3 Months Results * URINE BACTERIA CULTURE (03/10/2024 9:24 AM DOG WARDEN) SPEC DESCRIPTION URINE CLEAN CATCH 03/10/2024 11:53 AM DOG WARDEN [facility] SPECIAL REQUESTS NO SPECIAL REQUEST 03/10/2024 11:53 AM DOG WARDEN [facility] CULTURE RESULT NO GROWTH 2 DAYS 03/12/2024 8:01 AM DOG WARDEN [facility] URINE SPECIMEN OBTAINED BY CLEAN CATCH PROCEDURE / Unknown 03/10/2024 9:24 AM DOG WARDEN 03/10/2024 11:57 AM DOG WARDEN Celeste DOBBINS MICROBIOLOGY - GENERAL ORDER ZOILA Final Result [facility] [address] [place] [address], [place] [phone] [facility] [address] [place] [address], [place] [phone] * (ABNORMAL) URINALYSIS AUTO DIP (03/10/2024) COLOR (U) YELLOW YELLOW [id number], [facility] CLEAR CLEAR MG-[address], [place] GLUCOSE (U) NEGATIVE NEGATIVE MG/DL [id number] [address], [place] BILIRUBIN (U) NEGATIVE NEGATIVE MG-[address], [place] KETONES MG/DL (U) NEGATIVE NEGATIVE MG/DL MG-[address], [place] SPECIFIC GRAVITY (U) 1.020 1.001 - 1.035 MG-[address], [facility] (U) NEGATIVE NEGATIVE MG-[id number], [facility] PH 6.5 5.0 - 9.0 MG-[id number], [place] PROTEIN (U) TRACE(A) NEGATIVE mg/dL [id number], [place] UROBILINOGEN 0.2 0.2 - 1.0 EU/dL = mg/dL MG-[id number] [address], [place] NITRITES NEGATIVE NEGATIVE MG/DL [id number] [address], [place] LEUKOCYTES (U) TRACE(A) NEGATIVE MG-12 [address] [place] URINE SPECIMEN OBTAINED BY CLEAN CATCH PROCEDURE / Unknown 03/10/2024 us Celeste DOBBINS URINE ORDERABLES Final Resul t [id number] [address] [place] [address] [place] [address], [place] [phone] from Last 3 Months Insurance MEDICARE [facility] Care Teams Sec Reporting Consultant Relationship Specialty [place] [address] [place] [address] PCP - General FAMILY PRACTICE 11/13/19
--- OUTSIDE RECORDS SUMMARY | 2024-05-30 08:51 | XMS_ITS | Clinical Summary ---
Author Organization [facility] Address [address] [place] [address] Phone Care Team Providers Care Software Sales Consultant Name Role Phone Shahid Alanis MD [...] Completed 10/02/2019, 04/20, 05/14/2014 Insurance MEDICARE [employer] [facility] Care Teams Software Sales Consultant Relationship Specialty [place] [address] [place] [phone] PCP - General Family Practice 11/10/21
[2024-05-30 09:18] LABS: Basophils Percent Auto 0.1 % (0.2-1.2); Hematocrit 45.7 % (42.0-52.0); Hemoglobin 15.6 g/dL (14.0-18.0); Immature Granulocyte Absolute 0.03 K/mm3 (0.00-0.031); Immature Granulocyte Percent A 0.4 % (0-0.5); Lymphocytes Absolute Auto 0.49 K/mm3 (0.9-3.2); Lymphocytes Percent Auto 5.9 % (18.3-44.2); Mean Corpuscular HGB Conc 34.1 g/dl (32-36); Mean Corpuscular Hemoglobin 31.6 pg (26-34); Mean Corpuscular Volume 92.7 fl (80-100); Mean Platelet Volume 9.9 fl (7.4-10.4); Monocytes Absolute Auto 0.1 K/mm3 (0.1-0.6); Monocytes Percent Auto 1.5 % (2.6-8.5); Neutrophils Absolute Auto 7.6 K/mm3 (1.3-6.7); Neutrophils Percent Auto 92.1 % (45.5-73.1); Platelet Count Result 244 k/mm3 (150-375); Red Blood Count 4.93 M/mm3 (4.6-6.20); White Blood Count 8.3 K/mm3 (4.5-10.0)
[2024-05-30 09:25] LABS: Anion Gap 13 mmol/L (4-12); Blood Urea Nitrogen 17 mg/dL (9-20); Calcium 9.3 mg/dL (8.4-10.2); Carbon Dioxide 25 mmol/L (22-30); Chloride 102 mmol/L (98-107); Estimated Glomerular Filt Rate > 60; Glucose 138 mg/dL (65-110); Potassium 4.3 mmol/L (3.4-5.0); Sodium 140 mmol/L (137-145)
[2024-05-30 09:44] LABS: Prothrombin Time 14.1 Seconds (11.1-14.7)
[2024-05-30 09:45] LABS: Partial Thromboplastin Time 31.8 Seconds (22.3-36.8)
[2024-05-30 10:13] LABS: Platelet Estimate Adequate (Adequate); Schistocytes None Seen
== END 2024-05-30 08:32 | disposition home or self-care (01) ==
PROVIDERS: PCP Family Medicine Sports Medicine; Visit Provider Urology
DX: C67.9 Malignant neoplasm of bladder, unspecified (principal); Z01.818 Encounter for other preprocedural examination
CPT/HCPCS: 36415; 80048; 85025; 85610; 85730; 87086

== ENCOUNTER 2024-06-10 01:25 | Day surgery (SDC) | payer MEDICARE, OTHER, SELFPAY ==
[2024-05-28 14:58] VITALS: BMI 26.7
--- NOTE | 2024-05-28 15:06 | PC.NURSE ---
Addendum entered by Dora Gonzalez RN 05/28/24 15:11: PT was told by Rosalie in [place] to stop all supplements 7 days prior , he verbalized this and also his need to order picker/assembler premeds for his Contrast allergy preop that they were calling in Original Note: Report to the Outpatient Waiting Room, entrance under the green pavilion located off [facility], at time __0600am on date __06/10/24 . Planned Procedure Time: __0730am .? Time changes happen often and if your time is changed the preop area will call you the afternoon before. - You and your visitor will be asked to self-screen and do not enter if you have any COVID symptoms. Please call surgeon if you need to reschedule. - A mask is optional within the hospital at this time. Patients may have clear liquids (water, carbonated beverages, clear teas, apple juice) until 3 hours prior to surgery with a maximum of 20 ounces. - No food from midnight until time of surgery and no smoking, or chewing tobacco (or any form of nicotine). No chewing gum, candy or mints. (0430am) Take only the following medications with a SIP of water on the morning of surgery: Premeds per Dr Howard DO NOT STOP ANY OF YOUR OTHER PRESCRIPTION MEDICATIONS PRIOR TO SURGERY EXCEPT THE FOLLOWING Hold all vitamins and supplements for 7 days per anesthesiologist.Date of last dose is 06/01/24 Please no make-up, nail setswana, hairspray, perfume, deodorant, or body powder the day of surgery.? No jewelry (including any body piercings) or valuables the day of surgery, leave them at home.? Please take a shower or bath the night before, or the morning of, surgery with an antibacterial soap.? Wear comfortable, loose fitting clothing.? - Jewelry must be removed prior to entering the operating room.? Rings and piercings that are not removed may be cut off. - The hospital will not accept responsibility for valuables.? - Please leave all valuables, including medications, at home the day of surgery. If you are going home after surgery, a licensed cdl driver must drive you home.? - NO public transportation without another adult if you receive anesthesia. - We recommend that an adult stay with you for 24 hours following discharge. - We also recommend that you do not drive, make important decision, drink alcoholic beverages, or take any drugs that were not prescribed by your health care provider for at least 24 hours after your discharge time. Follow any additional instructions given to you from your surgeon. Telephone instructions given to ___Patient and asked if any additional questions and then verbalized understanding. Patient advised to call surgeon office or pre surgery nurse liaison [phone] if any additional questions.
[2024-06-10] VITALS (10 sets, daily range): BP systolic 107–169; BP diastolic 61–94; PULSE 51–68; RESP 12–20; TEMP 36.2–36.5; O2SAT 99–100; BMI 26.8
--- NOTE | ~2024-06-10 | XR_ITS ---
EXAMINATION: XR retrograde pyelogram BI DATE: 06/10/2024 08:03 INDICATION: Bilateral retrograde pyelograms TECHNIQUE: 3 fluoroscopic images of the abdomen and pelvis were obtained during procedure performed b y Dr. Rg coleman. Radiologist was not present for the imaging or procedure. The amount of fluorosc opy time used during this procedure was 0.4 minutes. COMPARISON: CT dated 05/30/2024 FINDINGS: Injected contrast is seen in portions of the bilateral ureters and in the bilateral renal collecting systems. There is and elongated lucent filling defect in the proximal left ureter which is without co rrelate on the recent prior CT urogram suggest this most likely represents injected gas bubbles. IMPRESSION: 1. Likely gas bubble in the proximal left ureter without evident correlate on prior CT urogram. See p rocedure note for further detail. Reviewed, dictated and finalized at location B. IMPRESSION: 1. Likely gas bubble in the proximal left ureter without evident correlate on p rior CT urogram. See procedure note for further detail.
--- OUTSIDE RECORDS SUMMARY | 2024-06-10 01:38 | XMS_ITS | Clinical Summary ---
Author Organization [facility] Address [address] [place] [address] Phone Care Team Providers Care Freight Car Inspector Name Role Phone Shahid Alanis MD Primary [...] Completed 10/02/2019, 04/20, 05/14/2014 Insurance MEDICARE [employer] [facility] Care Teams Freight Car Inspector Relationship Specialty [place] [address] [address] [place] [phone] PCP - General Family Practice 11/10/21
--- OUTSIDE RECORDS SUMMARY | 2024-06-10 01:38 | XMS_ITS | Encounter Summary ---
Author Organization [facility] Address [facility] [place] [address] Care Team Providers Care Athlete Manager Name Role Phone Shahid Alanis MD Primary Care Provider [phone]- [phone] Encounter Details Date Type Department Care Team (Late st Contact Info) Description 11/18/2021 Fourteen IPt Message Enc [facility] Family [facility] Internal Medicine [address] [phone] Shahid Alanis MD [address] [place] [address] 10 year colonoscopy Social History Tobacco Use [...] Care Team (Late st Contact Info) Description 07/15/2024 6:30 AM CDT Laboratory Only [facility] [address] [place] [address] Manny Bullard MD [address] [place] [address] 11/27/2024 3:40 PM CDT Office Visit [facility] [address] [place] [address] Shahid Alanis MD [address] [address] documented as of this encounter Visit Diagnoses Not on filedocumented in this encounter Additional Health Concerns Infection Onset Date Last Indicated Resolved Time COVID-19 Rule Out 01/10/2023 01/10/2023 01/10/2023 9:50 AM CDT COVID-19 Rule Out 03/30/2023 03/30/2023 03/30/2023 8:46 AM COMMODITY MANAGEMENT SPECIALIST COVID-19 Rule Out 03/30/2023 03/30/2023 03/30/2023 11:24 AM COMMODITY MANAGEMENT SPECIALIST Assessment Noted Time PHQ-9 Depression Total Score: 0 11/17/19 21 4:14 PM CDT documented as of this encounter Care Teams Athlete Manager Relationship Specialty [place] [address] [place] [address] PCP - General FAMILY PRACTICE 11/13/19 documented as of this encounter
--- OUTSIDE RECORDS SUMMARY | 2024-06-10 01:38 | XMS_ITS | Clinical Summary ---
Author Organization [facility] Address [address] [place] [address] Care Team Providers Care Kitchen Steward/Stewardess Name Role Phone Shahid Alanis MD Primary Care Provider [phone]- [phone] Allergies Active Allergy Reactions Criticality Noted Date [...] Encounters Date Type Department Care Team Description 06/07/2024 Patient Self-Triage [facility] DEFAULT [facility] Provider from Last 3 Months Immunizations Name Administration Dates Next Due Influenza (Generic) 12/27/2018 Influenza Adult (Generic) 12/30/2015 Pneumococcal (Pneumovax 23) 12/17/2016, 4 Shingrix 10/02/2019,05/14/2019 Td (Generic) 03/22/2005,05/28/1995 Td, Adsorbed, Preservative F ree, Adult Use, Lf Unspecified 03/22/2005,05/28/1995 Tdap (Generic) 11/10/2016 Zoster (Zostavax) [address] Unt/0.65Ml 05/14/2014 Family History Medical History Relation [...] Comments Blood Pressure 129/71 03/10/2024 9:02 AM HEAD AND NECK SURGEON Pulse 60 03/10/2024 8:55 AM HEAD AND NECK SURGEON Temperature 36.5 C (97.7 F) 03/10/2024 8:55 AM HEAD AND NECK SURGEON Respiratory Rate 18 03/10/2024 8:55 AM HEAD AND NECK SURGEON Oxygen Saturation 98% 03/10/2024 8:55 AM HEAD AND NECK SURGEON Inhaled Oxygen Concentration - - Weight 94.7 kg (208 lb 12.8 oz) 03/10/2024 8:55 AM HEAD AND NECK SURGEON Height 185.4 cm (6' 1 ) 03/10/2024 8:55 AM HEAD AND NECK SURGEON Body Mass Index 27.55 03/10/2024 8:55 AM HEAD AND NECK SURGEON Plan of Treatment Upcoming Encounters Date Type Department Care Team (Late st Contact Info) Description 07/15/2024 6:30 AM CDT Laboratory Only [facility] [address] [place] [address] Manny Bullard MD [facility] [place] [address] 11/27/2024 3:40 PM CDT Office Visit [facility] Family & Internal Medicine [address] [id number] Shahid Alanis MD [address] [facility] [address] [place] [address] Health Maintenance Due Date Last Done Comments Hepatitis C 1963 Annual Medicare Wellness Visit 11/12/2011 Pneumococcal Vaccine: 65+ Years (2 of 2 - PCV) 12/17/2017 12/17/2016, 12/30/2013 RSV Immunization or 60+ Years (1 - 1-dose 75+ series) 2021 COVID-19 Vaccine ( season) 2023 01/08/2023, 12/11/2021, 10/04/2021, Additional history exists Influenza Adult (#1) 2023 12/27/2018, 12/30/19 16 PHQ-2 (Physician Morongo) 03/19/2024 01/10/2023 DTaP, Tdap and Td Vaccines [...] on patient's age to complete this topic Insurance MEDICARE [facility] Care Teams Kitchen Steward/Stewardess Relationship Specialty [place] [address] [place] [address] PCP - General FAMILY PRACTICE 11/13/19
[2024-06-10] MEDS: LACTATED RINGERS 1,000 ML 30 ML IV CONT (06:40)
--- NOTE | 2024-06-10 07:21 | P.PNAN_ITS ---
Anes - Initial Pre Proc Eval Procedure: Operation Date: 06/10/24 07:30 Proposed Procedures p Cystoscopy with Bladder Biopsy, - Rashard Howard MD s Possible Transurethral Resection Bladder Tumor, Possible Retrograde Pyelogram - Rashard Howard MD Date/Time: 06/10/24 07:21 Surgeon: Rashard Howard MD Pre Op Diagnosis: bladder cancer Patient Data Age: 78 Gender: M Height: 1.85 m Weight: 92.2 kg Last Vital Signs Temp 97.7 F 06/10/24 06:15 Pulse 53 L 06/10/24 06:15 Resp 14 06/10/24 06:15 BP 139/78 06/10/24 06:15 Pulse Ox 99 06/10/24 06:15 O2 Del Method Room Air 06/10/24 06:15 Allergies Allergy/AdvReac Type Severity Reaction Status Date / Time Contrast Media Allergy Unknown PREMEDS Uncoded 06/10/24 06:20 BEFORE CONTRAST TESTS D/T LOBSTER ALLERGY Lobster Allergy Unknown Vomiting Uncoded 06/10/24 06:20 Home Medications ?Medication ?Instructions ?Recorded ?Confirmed ?Type ascorbic acid (vitamin C) 500 mg 500 mg PO DAILY 03/21/19 06/10/24 History tablet (Vitamin C With Kendal Hips) finasteride 5 mg tablet 5 mg PO DAILY 03/21/19 06/10/24 History mhamftup-xx-pawkb 300 mcg-K 60 1 tablet PO DAILY 03/21/19 06/10/24 History mcg-lycop 600 mcg-lutein 300 mcg tablet (Centrum Silver Men) flaxseed oil (Linseed Oil) 10 ml miscellaneous DAILY 06/08/23 06/10/24 History vibegron 75 mg tablet (Gemtesa) 75 mg PO DAILY 01/04/24 06/10/24 History Patient hx anesthesia problems: none Family hx anesthesia problems: none Results Review: All pre-operative results and documents have been reviewed as part of the pre- operative evaluation. [facility] Past Medical History Medical History Bladder cancer HTN (hypertension) Family History Family History Father Diabetes mellitus Carcinoma of colon Family history of congestive heart failure Social History Social History Smoking status: Never smoker Second hand tobacco smoke exposure: No Alcohol intake: never Drinks per week: 1 Substance use: never Substance use type: does not use Living arrangements: with family Additional living arrangements comments: wifev Spiritual care concerns: No Anes - Eval Final PreProcedure Day of Procedure 06/10/24 07:21 Patient weight: normal Lungs: normal air movement Airway: Mallampati scale class II Neurological: alert and oriented Last oral intake: >/= 8 hours ASA classification: II Emergent: no Anesthetic plan: proceed Anesthesia type and monitoring: general LMA and standard monitoring Results Review: All pre-operative results and documents have been reviewed as part of the pre- operative evaluation. Pt w overall good functional status, works as an air quality technician, much walking, no cp or sob. Informed Consent: The patient's anesthetic plan and its attendant risks and benefits were discussed with the patient/family/POA. Questions were solicited and answers provided to the satisfaction of the patient/family/POA.
--- NOTE | 2024-06-10 07:24 | WPDHPUPDATE1 ---
History and Physical Update Update Date/Time: 06/10/24 07:24 History and Physical has been reviewed, including an updated exam of the patient. There are NO changes in the patient's condition. Risks, benefits, and alternatives have been discussed and questions answered. Patient agrees to proceed with procedure.
[2024-06-10] MEDS: ceFAZolin 2 GM/D5W 50 ML 2 GM/50 ML BAG IVPB (07:40)
[2024-06-10] MEDS: LIDOCAINE 2% GEL UROJET 10 ML PKG MUCOUS MEM (07:41)
--- NOTE | 2024-06-10 08:00 | W.PM.PROC2 ---
Procedure Note - Detailed Date of Procedure 06/10/24 Pre-op Diagnosis bladder cancer Post-op Diagnosis Same Procedure Performed Cystoscopy with bilateral retrograde pyelograms, bladder biopsy with fulguration Surgeon Rashard Howard MD Anesthesia General Description of Procedure Patient was taken to the operative suite correctly identified. Once anesthesia was obtained was placed in dorsal lithotomy position and prepped and draped usual sterile fashion. Twenty-two Indonesian scope was inserted under direct vision. There were no urethral strictures. Prostate was not obstructive. Upon entering the bladder the trigonal area somewhat raised. There was no papillary tumors just erythema around the trigone and floor as well as slightly lateral to the orifice ease. Ureteral catheter was inserted into both orifices and pyelograms were performed. No filling defects were noted. His CT scan also was negative. I then used cold cup biopsy to take 2 biopsies along the floor in somewhat just proximal to the right ureteral orifice. The base was fulgurated. There was good hemostasis. Bladder was drained. 2% viscous lidocaine was inserted into the urethra patient is taken recovery stable condition. He will call for path results in 1 week. This completes dictation. Please send a copy of op note to my office Estimated Blood Loss 0 Drains No Packing No Pathology Yes Complications No immediate complications Condition Stable Disposition PACU
[2024-06-10] MEDS: hydrALAZINE HCL 20 MG/ML VIAL 5 MG IV PUSH (09:46)
--- NOTE | 2024-06-10 09:52 | SUR.PHASEII ---
0945 - pt concerned of elevation in blood pressure. 164/93. HR 53. Dr. Pinto called and order received.
== END 2024-06-10 10:28 | disposition home or self-care (01) ==
PROVIDERS: PCP Family Medicine Sports Medicine; Visit Provider Urology
PROC: 0TBB8ZX Excision of Bladder, Via Natural or Artificial Opening Endoscopic, Diagnostic (ICD-10-PCS; CPT 52204; principal; 2024-06-10 07:30)
PROC: 0TBB8ZZ Excision of Bladder, Via Natural or Artificial Opening Endoscopic (ICD-10-PCS; CPT 52005; 2024-06-10 07:30)
DX: Z08 Encounter for follow-up examination after completed treatment for malignant neoplasm (principal); N30.20 Other chronic cystitis without hematuria; L53.9 Erythematous condition, unspecified; I10 Essential (primary) hypertension; N40.1 Benign prostatic hyperplasia with lower urinary tract symptoms; N32.81 Overactive bladder; R35.0 Frequency of micturition; N52.9 Male erectile dysfunction, unspecified; Z98.890 Other specified postprocedural states; Z85.51 Personal history of malignant neoplasm of bladder; Z80.0 Family history of malignant neoplasm of digestive organs; Z82.49 Family history of ischemic heart disease and other diseases of the circulatory system
CPT/HCPCS: 52005; 52204; 74420; 88305; C1758; J0360; J0690; J1100; J2003; J2405; J2704; J3010; J7120; Q9966